=== PATIENT | female | born 2000 | race Native Hawaiian/Other Pacific Islander ===

== ENCOUNTER 2023-02-02 00:27 | Emergency (ER) | payer OTHER ==
[~2023-02-02] VITALS: Ht 160 cm; Wt 56.7 kg
[2023-02-02 00:47] VITALS: TEMP 98.6
[2023-02-02 01:27] LABS: PLATELET COUNT 227 K/uL (152-353)
[2023-02-02 02:00] LABS: POTASSIUM 3.4 mmol/L (3.6-5.2)
[2023-02-02 02:39] VITALS: BP 102/67
== END 2023-02-02 05:30 | disposition home or self-care (01) ==
LOC: ED 00:27
PROVIDERS: Family Medicine
DX: E86.0 Dehydration (principal); R42 Dizziness and giddiness
CPT/HCPCS: 36415; 80053; 81000; 81025; 85027; 96365; 99283; 99284